=== PATIENT | male | born 2005 | race Asian ===

== ENCOUNTER 2025-08-17 16:53 | Emergency (ER) | payer OTHER, SELFPAY ==
[2025-08-17 16:56] VITALS: BP 136/80; PULSE 72; RESP 18; TEMP 37.2; O2SAT 99
--- NOTE | 2025-08-17 17:17 | ED_ITS ---
HPI - General Adult General Chief complaint: Abdominal Pain Stated complaint: R side pain Time Seen by Provider: 08/17/25 16:56 History of Present Illness HPI narrative: Patient presents to the emergency department complaining of right sided abdominal pain. Patient states this has been going on for about 2 weeks. Pain is worse in the mornings when he wakes up. Denies any hematuria. Denies any nausea or vomiting. Denies any diarrhea. Denies any fever at home. 20-year-old young man presenting to the emergency department with complaint of right-sided abdominal pain that has been going on for about 2 weeks. It sounds as though this is present most mornings. He just describes it as a pain. Maybe an ache. This is present also he has noticed it me does certain truncal rotation stretch before playing pickle ball but while actually playing pickleball he would not experiences pain. He also went bowling and noticed this pain. He is right handed. This pain when it is present can go into his back a little bit as well. He has not noticed any hematuria or dysuria. No noted trauma. No fever. It sounds as though nurse suggested that it might be gallbladder and so he is once prompted expressing concern of having a gallbladder issue and is wondering about an ultrasound. Has daily bowel movements and would not consider constipated. Bowel movement does not change his perception of discomfort. He just feels like there is something in there now. He does not get a history of GERD. He test this gallbladder theory by ordering [employer] and 8 it late and had some stomach discomfort but he says he does does not typically have any trouble with his stomach. Related Data Home Medications ?Medication ?Instructions ?Recorded ?Confirmed No Known Home Medications 08/17/2507/20 Allergies Allergy/AdvReac Type Severity Reaction Status Date / Time No Known Drug Allergies Allergy Verified 08/17/25 17:02 Review of Systems Status of ROS: Reports: 6 or more systems reviewed and unremarkable except as noted in History and below [facility] Social History service: No Exam Narrative: Exam Narrative: Pleasant. Slim, tall. Skin is warm and dry. No swelling or erythema rashes noted. Breathing easily. Heart in regular rate and rhythm. Abdomen is flat and soft and nontender. Has no pain to palpation along the rib edges. No pain to palpation of his back. Truncal rotation does not elicit this pain. I do not appreciate pain to palpation the hip flexors. Is able to flex and rotate against resistance is hips. No wall defect in the abdomen/inguinal area. Const: Vital Signs, click to edit/add: Vital Signs - 24 hr 08/17/25 16:56 Temperature 98.9 F Pulse Rate [Right Pulse Oximeter] 72 Respiratory Rate 18 Blood Pressure [Ri ght Upper Arm] 136/80 Pulse Oximetry 99 Oxygen Delivery Me thod Room Air Documenting provider has reviewed patient's vital signs: yes Course Vital Signs Vital signs: Initial Vital Signs Temperature 98.9 F 08/17/25 16:56 Temperature Source Temporal Artery Scan 08/17/25 16:56 Pulse Rate 72 08/17/25 16:56 Pulse Rhythm Regular 08/17/25 16:56 Pulse Strength 3+ Normal 08/17/25 16:56 Respiratory Rate 18 08/17/25 16:56 Blood Pressure 136/80 08/17/25 16:56 Blood Pressure Mean 98 08/17/25 16:56 Blood Pressure Position Sitting 08/17/25 16:56 Pulse Oximetry 99 08/17/25 16:56 Oxygen Delivery Method Room Air 08/17/25 16:56 Vital Signs Temperature 98.9 F 08/17/25 16:56 Pulse Rate 72 08/17/25 16:56 Respiratory Rate 18 08/17/25 16:56 Blood Pressure 136/80 08/17/25 16:56 Pulse Oximetry 99 08/17/25 16:56 Oxygen Delivery Method Room Air 08/17/25 16:56 Temperature 98.9 F 08/17/25 16:56 Pulse Rate 72 08/17/25 16:56 Respiratory Rate 18 08/17/25 16:56 Blood Pressure 136/80 08/17/25 16:56 Pulse Oximetry 99 08/17/25 16:56 Oxygen Delivery Method Room Air 08/17/25 16:56 Medical Decision Making MDM Narrative Medical decision making narrative: This seems more likely musculoskeletal. I suppose it could be large kidney stone but not in the ureter. Doubtful gallbladder disease; seems presenting atypically and would not be typical patient for this without strong family history. Does not seem to be describing GERD. Doubtful appendicitis. Not a good candidate for vascular anomaly/aneurysm/dissection. Morning symptoms possibly secondary to hyperchlorhydria but denies getting heartburn and location of pain is not really consistent with that. Per concern, I did return to do a point of care ultrasound of gallbladder and kidney on the right. Might be a cyst in the lower pole of the kidney. There is no pain to ultrasound of the right upper quadrant. Gallbladder is easily visualized. I do not appreciate pericystic edema nor stones. Might be a little sludge. See patient discharge plan for further discussion I am not sure what is contributing to these symptoms at the moment. It is difficult to reproduce and as such I understand why you might consider that it is something inside? I do not think you have an abdominal muscle strain but I do think that some of these exercises might be beneficial to you. Consider doing these daily over the next week or 2. If not improved in 2 weeks would follow up for lab work and repeat imaging. Consider taking 400-600 mg of ibuprofen 2-3 times daily over the next 5 days; probably with a little food. Of course if pain suddenly gets much worse, associated fever, please return. Lab Data Lab results reviewed: Yes I reviewed the patient's lab results Labs: Lab Results 08/17/25 Range/Units 17:43 Urine Color Yellow (Yellow) Urine Appearance Clear (Clear) Urine pH 6.5 (5.0-8.5) Ur Specific Fisher 1.025 (1.000-1.030) Urine Protein Negative (Negative) Urine Glucose (UA) Negative (Negative) Urine Ketones Trace A (Negative) Urine Blood Negative (Negative) Urine Nitrite Negative (Negative) Urine Bilirubin Negative (Negative) Urine Urobilinogen 0.2 (0.2-1.0) Ur Leukocyte Esterase Negative (Negative) Urine RBC 0-2 (0-2) Urine WBC 0-2 (0-5) Ur Squamous Epith Cells Few (None-Few) Urine Bacteria Few A (None) Urine Mucus Few A (None) Discharge Plan Discharge Clinical Impression: Right sided abdominal pain Patient Disposition: Home w/ Parent or Adult Condition: Improved Additional Instructions: I am not sure what is contributing to these symptoms at the moment. It is difficult to reproduce and as such I understand why you might consider that it is something inside? I do not think you have an abdominal muscle strain but I do think that some of these exercises might be beneficial to you. Consider doing these daily over the next week or 2. If not improved in 2 weeks would follow up for lab work and repeat imaging. Consider taking 400-600 mg of ibuprofen 2-3 times daily over the next 5 days; probably with a little food. Of course if pain suddenly gets much worse, associated fever, please return. Prescriptions: No Action No Known Home Medications Follow Up/Referrals: Provider,Not a Local [Primary Care Provider, Family Practice] Stand Alone Forms: [facility] Info Instructions
[2025-08-17 18:02] LABS: Appearance Urine Clear (Clear)
== END 2025-08-17 19:02 | disposition home or self-care (01) ==
PROVIDERS: Emergency Provider Family Medicine
DX: R10.9 Unspecified abdominal pain (principal)
CPT/HCPCS: 81001; 87086; 99282; 99283; 99284